=== PATIENT | male | born 1980 | race Caucasian/White ===

== ENCOUNTER 2025-06-07 10:47 | Emergency (ER) | payer OTHER, SELFPAY ==
[2025-06-07 10:48] VITALS: BP 184/96; PULSE 78; RESP 20; TEMP 37.1; O2SAT 98
--- NOTE | 2025-06-07 10:56 | EX.ED.DYSGE1 ---
HPI History of Present Illness Chief Complaint: Dizziness Detail of Chief Complaint: Dizziness that woke Informant: patient Onset/Context/Timing Onset: Today, Yesterday and Weeks (Last week as well) Context: Onset with activity, Gradual Onset and Sudden Onset Timing: Intermittent Quality: Lightheadedness and apparently had a low blood pressure at work today Location: Presents from work Current Severity: Mild Maximum Severity: Severe Worsened by: Standing Relieved by: Better when he was sitting/supine Associated Symptoms Associated Symptoms: Diaphoresis, thirst, dry mouth darker urine Narrative Narrative: Patient is a 44-year-old male. He does have history of diabetes. He has not seen his doctor in 8 months. He had several episodes of lightheadedness last week. He had episode yesterday and today was worse. He does endorse thirst and dry mouth. He does endorse lightheadedness if he gets up rapidly. He does endorse darker than normal colored urine. He does endorse feeling weak. He does not know his last A1c level. He denies chest discomfort, pressure, tightness or heaviness. He denies dyspnea, dyspnea on exertion orthopnea. He denies abdominal pain, black or maroon-colored stool. He is not on an anticoagulant. Prior similar symptoms: Yes Recent Illness/Hospitalization: No PFSH PFS Medical History (Updated 06/07/25 @ 12:[address] Edy Olvera MD) Hypertension Home Medications Medication Instructions Recorded Last Taken Type cephalexin 500 mg capsule 500 mg PO Q6 ##28 05/31/17 Unknown Rx Allergy/AdvReac Type Severity Reaction Status Date / Time No Known Allergies Allergy Verified 06/07/25 10:48 Social History (Updated 06/07/25 @ 11:13 by Miryam Faulkner) household members: spouse housing: house Smoking Status: Never smoker ROS ROS ED Constitutional Constitutional ED: Denies chills, fever(s) or subjective Eyes Eyes: Denies blurry vision or change in vision ENT ENT ED: Denies ear pain or rhinorrhea Cardiovascular Cardiovascular: Reports other Details: Orthostatic lightheadedness ; Denies chest pain, orthopnea, palpitations or paroxysmal nocturnal dyspnea Respiratory/Chest Respiratory/Chest: Denies cough, dyspnea, dyspnea on exertion, orthopnea or paroxysmal nocturnal dyspnea Gastrointestinal Gastrointestinal: Reports nausea; Denies abdominal pain, melena or vomiting Genitourinary Genitourinary ED: Reports other Details: Urine is darker than normal. ; Denies dysuria, hematuria or urinary frequency Musculoskeletal Musculoskeletal: Denies arthralgias or myalgias Integumentary Denies abscess or rash Neurologic Neurologic: Reports weakness; Denies headache(s) or paresthesias Hematologic/Lymphatic Hematologic/Lymphatic: Reports systems reviewed and no addt'l complaints, except as documented EXAM Physical Exam Const Vital Signs: 06/07/25 10:48 06/07/25 11:29 06/07/25 11:30 Temperature 98.7 F Temperature Source Oral Pulse Rate 78 80 Pulse Rate [Lying] 98 Pulse Rate [Sitting (for 1 minute prior to obtaining)] 78 Pulse Rate [Standing (for 1 minute prior to obtaining)] 77 Respiratory Rate 20 H Blood Pressure 184/96 H 127/64 H Blood Pressure [Lying] 134/89 H Blood Pressure [Sitting (for 1 minute prior to obtaining)] 128/89 H Blood Pressure [Standing (for 1 minute prior to obtaining)] 140/61 H Blood Pressure Mean 125 85 Blood Pressure Mean [Lying] 104 Blood Pressure Mean [Sitting (for 1 minute prior to obtaining)] 102 Blood Pressure Mean [Standing (for 1 minute prior to obtaining)] 87 Pulse Ox 98 99 06/07/25 12:00 Temperature Temperature Source Pulse Rate 86 Pulse Rate [Lying] Pulse Rate [Sitting (for 1 minute prior to obtaining)] Pulse Rate [Standing (for 1 minute prior to obtaining)] Respiratory Rate 18 Blood Pressure 127/98 H Blood Pressure [Lying] Blood Pressure [Sitting (for 1 minute prior to obtaining)] Blood Pressure [Standing (for 1 minute prior to obtaining)] Blood Pressure Mean 107 Blood Pressure Mean [Lying] Blood Pressure Mean [Sitting (for 1 minute prior to obtaining)] Blood Pressure Mean [Standing (for 1 minute prior to obtaining)] Pulse Ox 99 Positive well nourished and well developed Constitutional Narrative: Patient is diaphoretic. His clothes are damp. He states he has a fan on him at work. General Appearance ED: well developed and NAD; Negative for cyanotic or diaphoretic HEENT Reports dry mucous membranes HEENT Narrative: Head is atraumatic normocephalic. Ears normal. Patient has safety glasses/prescription glasses on. Posterior pharynx is normal Mouth ED: Yes dry mucous membranes Mouth: dry mucous membranes Eyes PERRL and EOMs intact bilaterally General Eye ED: Negative for pale conjunctiva or scleral icterus Neck no lymphadenopathy, supple and no JVD Chest Wall inspection of chest normal and palpation of chest normal Cardio regular rate, regular rhythm, S1 normal heart sound, S2 normal heart sound and no murmurs GI normal to inspection, nondistended, normoactive bowel sounds, non-tender, non-distended and no masses GI Narrative: Exam is limited due to body habitus Extremity normal to inspection Neuro oriented x3 and CN's II-XII intact bilaterally Sensorium / Orientation: alert Psych mental status grossly normal Skin no rashes or lesions noted, no wounds and skin turgor normal Skin Narrative: Skin is moist. MDM MDM MDM Narrative Medical decision making narrative: Suspect patient has orthostatic hypotension due to excessive fluid loss because of environmental exposure and not drinking enough fluids based on his history and physical and description of his urine. Orthostatic vital signs were ordered. Because he is diabetic has not seen a doctor in 8 months BMP was obtained assess glucose, CO2 anion gap, more importantly renal function and electrolytes. UA was obtained to assess specific gravity and if there is ketones. 2 L of normal saline was ordered. Patient does have elevated blood pressure of 184/96. Since he is asymptomatic with respect to his blood pressure will observe Lab Data Attestation: I reviewed the patient's lab results. Lab results narrative: BUN/creatinine ratio is elevated at 23-1. [place] is urine is elevated. There is no ketones. He does have protein. Patient was informed of results. He was informed that he needs to drink 1.5 to 2 gallons of fluids. He is presently drinking a gallon. Labs: Laboratory Results - last 24 hr 06/07/25 06/07/25 11:06 11:38 Sodium 134 Potassium 4.0 Chloride 96 L Carbon Dioxide 24.8 Anion Gap 13 BUN 17 Creatinine 0.74 Est GFR (MDRD) Non-Af 115 BUN/Creatinine Ratio 22.9 H Glucose 103 H Calcium 9.2 Urine Color Yellow Urine Clarity Clear Urine pH 6.0 Ur Specific [place] 1.020 Urine Protein 15 H Urine Glucose (UA) Normal Urine Ketones Negative Urine Occult Blood Negative Urine Nitrite Negative Urine Bilirubin Negative Urine Urobilinogen Normal Ur Leukocyte Esterase Negative Treatment and Re-Evaluation :: Plan is to discharge after second liter has infused. He still has not urinated since receiving the fluids. Discharge Plan Triage Chief Complaint: Dizziness ED Provider: Edy Olvera Dx/Rx/DC Orders Clinical Impression: Orthostatic hypotension, Hypovolemia dehydration, Elevated blood pressure reading, Type 2 diabetes mellitus, Heat exhaustion Instructions: ED Dehydration (Adult), ED Heat Exhaustion Prescriptions: No Action cephalexin 500 MG capsule 500 mg PO Q6 Qty: 28 0RF Primary Care Provider: Marcos Tiwari Referrals: Yaz Lai [employer], [employer] [Non-Staff] - As Needed Activity Restrictions/Additional Instructions: Recommend drinking 1.5 to 2 gallons of liquids a day while at work. You need to increase your fluid intake on hot humid days like we have been having. Print Language: Icelandic Disposition Disposition: Home, Self Care
[2025-06-07] MEDS: 0.9% Normal Saline (1000mL) 1,000 ML 1000 ML IV ×2 (11:02→12:21)
[2025-06-07 11:29] VITALS: BP 127/64; PULSE 80; O2SAT 99
[2025-06-07 11:30] VITALS: BP 128/89; BP 134/89; BP 140/61; PULSE 77; PULSE 78; PULSE 98
[2025-06-07 11:50] LABS: Color, Urine Yellow (Yellow); Glucose, Dipstick Normal (Normal); Ketone-Dipstick Negative (Negative); Leukocyte Esterase-Dipstick Negative /ul (Negative); Nitrite-Dipstick Negative (Negative); Occult Blood-Urine Negative /ul (Negative); Protein-Dipstick 15 mg/dl (Negative); Specific Gravity, Urine 1.020 (1.002-1.030); Urine Bilirubin Dipstick Negative (Negative)
[2025-06-07 12:00] VITALS: BP 127/98; PULSE 86; RESP 18; O2SAT 99
[2025-06-07 12:07] LABS: Anion Gap 13 (5-15); BUN 17 mg/dL (4-19); BUN/Creat Ratio 22.9 RATIO (10-20); Calcium,Total 9.2 mg/dL (7.6-11.0); Carbon Dioxide 24.8 mmol/L (21.0-32.0); Chloride 96 mmol/L (98-108); Glucose 103 mg/dL (70-99); Potassium 4.0 mmol/L (3.3-5.1)
[2025-06-07 13:14] VITALS: BP 127/89; PULSE 70; RESP 19; TEMP 37; O2SAT 99
== END 2025-06-07 13:15 | disposition home or self-care (01) ==
PROVIDERS: Emergency Provider Emergency Medicine; PCP Physician Assistant; Visit Provider Emergency Medicine
DX: I95.1 Orthostatic hypotension (principal); E11.9 Type 2 diabetes mellitus without complications; T67.5XXA Heat exhaustion, unspecified, initial encounter; X58.XXXA Exposure to other specified factors, initial encounter; E86.0 Dehydration; E86.1 Hypovolemia; R03.0 Elevated blood-pressure reading, without diagnosis of hypertension
CPT/HCPCS: 80048; 81002; 96360; 96361; 99284